=== PATIENT | male | born 1950 | race African-American/Black ===

== ENCOUNTER → 2017-08-20 | Emergency (ER) | payer OTHER ==
[~2017-08-20] MED LIST: KETOROLAC TROMETHAMINE 30 MG/1 ML VIAL IVPUSH ONE; KETOROLAC TROMETHAMINE 30 MG/1 ML VIAL ONE; SODIUM CHLORIDE 1,000 ML IV STA
--- NOTE | 2017-08-20 14:22 | PDOC ---
History of Present Illness - General Chief Complaint: Altered Mental Status Stated Complaint: ALTERED MENTAL/positive troponin Time Seen by Provider: 08/20/17 14:10 History Source: Patient - History of Present Illness Occurred: reports: other Pain Location: reports: back Past History - Past Medical History Allergies/Adverse Reactions: Allergies Allergy/AdvReac Type Severity Reaction Status Date / Time No Known Allergies Allergy Verified 08/20/17 14:28 Home Medications: Ambulatory Orders Lactose-Reduced Food [Ensure Plus] 237 ml PO TID #96 liquid 03/02/17 Abacavir Sulfate/Lamivudine [Epzicom Tablet] 1 tablet PO DAILY #30 tablet Amlodipine Besylate [Norvasc -] 5 mg PO DAILY #30 tablet 08/15/17 Darunavir Ethanolate [Prezista -] 800 mg PO DAILY #30 tablet 08/15/17 Gabapentin [Neurontin -] 100 mg PO Q8H #21 capsule 08/15/17 Multivit-Min/Iron Fum/Folic AC [Uxjak-Qswcxqb-Bjxnghmm Tablet] 1 each PO DAILY # 30 tablet 08/15/17 Ritonavir [Norvir -] 100 mg PO DAILY #30 tab 08/15/17 Anemia: Yes (Chronic - reports since childhood) Asthma: No Cancer: No Cardiac Disorders: No CVA: No COPD: No CHF: No Dementia: No Diabetes: No GI Disorders: No Disorders: No HTN: No Hypercholesterolemia: No Liver Disease: No Seizures: No Thyroid Disease: No - Surgical History Abdominal Surgery: No Appendectomy: No Cardiac Surgery: No Cholecystectomy: No Lung Surgery: No Neurologic Surgery: No Orthopedic Surgery: Yes (Mult Bone Fx - Trauma at age 40) - Suicide/Smoking/Psychosocial Hx Smoking History: Current every day smoker Have you smoked in the past 12 months: Yes Number of Cigarettes Smoked Daily: 4 Cigars Per Day: 0 Hx Alcohol Use: Yes Drug/Substance Use Hx: Yes Substance Use Type: Cocaine Hx Substance Use Treatment: Yes Review of Systems - Review of Systems Constitutional: No: Chills, Fever Respiratory: No: Cough, Shortness of Breath Cardiac (ROS): No: Chest Pain, Lightheadedness, Palpitations, Syncope Musculoskeletal: Yes: Back Pain Neurological: No: Numbness, Tingling, Weakness *Physical Exam - Physical Exam General Appearance: Yes: Appropriately Dressed. No: Apparent Distress HEENT: positive: Normal Voice Neck: positive: Supple Respiratory/Chest: positive: Lungs Clear, Normal Breath Sounds. negative: Respiratory Distress Cardiovascular: positive: Regular Rate, S1, S2 Gastrointestinal/Abdominal: positive: Soft. negative: Tender Musculoskeletal: negative: CVA Tenderness, Vertebral Tenderness Extremity: positive: Normal Inspection Integumentary: positive: Dry, Warm Neurologic: positive: Fully Oriented, Alert, Normal Mood/Affect ED Treatment Course - LABORATORY CBC & Chemistry Diagram: 08/20/17 15:00 08/20/17 15:00 - RADIOLOGY Radiology Studies Ordered: Category Date Time Status CHEST PA & LAT [RAD] Stat Radiology 08/20/17 14:17 Ordered SPINE-LUMBAR SACRAL [RAD] Stat Radiology 08/20/17 14:17 Ordered Medical Decision Making - Medical Decision Making 08/20/17 14:21 66-year-old male history of HIV well-controlled on meds, anemia, anxiety, depression, 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 for elevated CK-MB on labs 08/17. It is unclear why blood work was done, but CK-MB results was 66 w/ CK of >40K. No troponin was sent. EKG done at facility this am unremarkable. and no ekg done. Patient has no chest pain or shortness of breath and in fact only complaint is lower back pain radiating into his left buttocks that started several days ago. Patient states he tripped and fell onto buttocks and has had pain since. No lower extremity weakness, bowel or bladder incontinence or saddle anesthesia. Of note, as per chart review on 08/17, it is documented that patient complained of lower back discomfort after sleeping on a steel bed while incarcerated. X- ray was done which showed some DJD. Patient states he is not on anything for pain. See exam Acute on chronic LBP ?fall DJD on recent film No red flags at this time -pain control>reassess Elevated CK-MB (66) at rehab 2 days ago, no trop sent No CP or SOB EKF this am at facility was normal Pt stable w/ clear chest/lungs in ED -rpt labs -ekg 08/20/17 18:23 XR neg for fx. back pain improved w/ meds. CK >12K, will administer IVF for possible rhabdo as d/w Dr Alonso and rpt labs. Trop and ekg neg. Pt has no CP or SOB 08/20/17 18:39 08/20/17 18:55 08/20/17 18:55 Pt signed out NIRMAL Iqbal *DC/Admit/Observation/Transfer Diagnosis at time of Disposition: Elevated creatine kinase level, Back pain - Discharge Dispostion Disposition: HOME Condition at time of disposition: Stable - Referrals - Patient Instructions Printed Discharge Instructions: DI for Low Back Pain Additional Instructions: Please follow up with your primary care doctor this week. If you develop any new or worsening symptoms, please return to the ER. - Post Discharge Activity
[2017-08-20 15:18] LABS: BASO % 1.2 % (0-2.0); EOS % 0.6 % (0-4.5); HEMATOCRIT 31.5 % (35.4-49); HEMOGLOBIN 10.5 GM/dL (11.7-16.9); LYMPH % 28.5 % (8-40); MCH 30.6 pg (25.7-33.7); MCHC 33.1 g/dl (32.0-35.9); MEAN CELL VOLUME 92.3 fl (80-96); MEAN PLT VOLUME 8.6 fl (7.5-11.1); MONO % 6.8 % (3.8-10.2); NEUT % 62.9 % (42.8-82.8); PLATELET COUNT 202 K/MM3 (134-434); RBC 3.42 M/mm3 (4.00-5.60); RDW 14.9 % (11.9-15.9); WHITE BLOOD COUNT 5.4 K/mm3 (4.0-10.0)
[2017-08-20 15:48] LABS: CHLORIDE 105 mmol/L (98-107); POTASSIUM 4.8 mmol/L (3.5-5.1); SODIUM 139 mmol/L (136-145)
--- NOTE | 2017-08-20 16:10 | EKG ---
Test Reason : Blood Pressure : / mmHG Vent. Rate : 091 BPM Atrial Rate : 091 BPM P-R Int : 134 ms QRS Dur : 078 ms QT Int : 366 ms P-R-T Axes : 051 069 053 degrees QTc Int : 450 ms NORMAL SINUS RHYTHM NORMAL ECG WHEN COMPARED WITH ECG OF 04-JAN-2017 07:42, NO SIGNIFICANT CHANGE WAS FOUND Confirmed by EMMA LOPEZ MD ([id number]) on 08/20/2017 4:10:09 PM Referred By: GÉNESIS Confirmed By:EMMA LOPEZ MD
[2017-08-20 16:57] LABS: ALK PHOS 61 U/L (45-117); ANION GAP 5 (8-16); BILIRUBIN,TOTAL 0.4 mg/dL (0.2-1.0); BLOOD UREA NITROGEN 13 mg/dL (7-18); CALCIUM 8.1 mg/dL (8.5-10.1); CO2 29 mmol/L (21-32); CREATININE 0.8 mg/dL (0.7-1.3); GLUCOSE,RANDOM 77 mg/dL (74-106); SGPT/ALT 110 U/L (12-78); TOT PROT 6.8 g/dl (6.4-8.2)
[2017-08-20 17:43] LABS: SGOT/AST 439 U/L (15-37)
[2017-08-20 18:58] VITALS: BP 110/66; PULSE 80; TEMP 99.4
--- NOTE | 2017-08-20 20:03 | PDOC ---
*Physical Exam - Vital Signs Last Vital Signs Temp Pulse Resp BP Pulse Ox 99.4 F 80 19 110/66 95 08/20/17 18:58 08/20/17 18:58 08/20/17 18:58 08/20/17 18:58 08/20/17 18:58 - Physical Exam Comments: 08/20/17 20:03 Sign-out received from outgoing ER provider Jesse. Pt interviewed and examined. Ancillary studies reviewed. Will repeat CK s/p administration of 2L IVF. 08/20/17 22:08 Patient CK now 8000s, trending down appropriately. Patient states he feels ready to be discharged at this time, when asked how his pain is at this time patient states "I feel like I am ready to get the hell out of here." Patient is ambulatory in ED with no c/o of pain now. Will discharge to [facility]. Adivsed patient of signs and symptoms for return to ER; patient verbalized understanding and agrees to plan. 08/21/17 01:33 Upon discussion with RN accounts payable supervisor at [facility], patient was not admitted to [facility] and in fact is followed at the [facility] at [address] [place] [address] where he was sent in from today. Patient is to be sent home and followed at [facility]. ED Treatment Course - LABORATORY CBC & Chemistry Diagram: 08/20/17 15:00 08/20/17 15:00 - ADDITIONAL ORDERS Additional order review: Laboratory Results 08/20/17 08/20/17 15:00 15:00 Sodium 139 Potassium 4.8 Chloride 105 Carbon Dioxide 29 Anion Gap 5 L BUN 13 Creatinine 0.8 Creat Clearance w eGFR > 60 Random Glucose 77 Calcium 8.1 L Total Bilirubin 0.4 AST 439 H D ALT 110 H Alkaline Phosphatase 61 Creatine Kinase 00825 H Troponin I 0.03 B-Natriuretic Peptide 407.81 H Total Protein 6.8 Albumin 3.0 L 08/20/17 15:00 RBC 3.42 L MCV 92.3 MCHC 33.1 RDW 14.9 MPV 8.6 Neutrophils % 62.9 Lymphocytes % 28.5 Monocytes % 6.8 Eosinophils % 0.6 Basophils % 1.2 - Medications Given in the ED: ED Medications Discontinued Medications Generic Name Dose Route Start Last Admin Trade Name Freq PRN Reason Stop Dose Admin Sodium Chloride 1,000 mls @ 1,000 mls/hr 08/20/17 18:22 08/20/17 18:47 Normal Saline - IV 08/20/17 19:21 1,000 mls/hr ASDIR STA Administration Ketorolac Tromethamine 30 mg 08/20/17 14:28 08/20/17 15:37 Toradol Injection - IVPUSH 08/20/17 14:29 30 mg ONCE ONE Administration *DC/Admit/Observation/Transfer Diagnosis at time of Disposition: Elevated creatine kinase level Back pain Qualifiers: Back pain location: low back pain Chronicity: acute Back pain laterality: left Sciatica presence: with sciatica Sciatica laterality: sciatica of left side Qualified Code(s): M54.42 - Lumbago with sciatica, left side - Discharge Dispostion Disposition: HOME Condition at time of disposition: Stable Admit: No - Referrals - Patient Instructions Printed Discharge Instructions: DI for Low Back Pain Additional Instructions: Please follow up with your primary care doctor this week. If you develop any new or worsening symptoms, please return to the ER. - Post Discharge Activity
--- NOTE | 2017-08-23 11:40 | EKG ---
Test Reason : Blood Pressure : / mmHG Vent. Rate : 082 BPM Atrial Rate : 082 BPM P-R Int : 150 ms QRS Dur : 082 ms QT Int : 392 ms P-R-T Axes : 049 044 044 degrees QTc Int : 457 ms NORMAL SINUS RHYTHM MINIMAL VOLTAGE CRITERIA FOR LVH, MAY BE NORMAL VARIANT BORDERLINE ECG WHEN COMPARED WITH ECG OF 20-AUG-2017 13:02, NO SIGNIFICANT CHANGE WAS FOUND Confirmed by MITESH DAY MD ([id number]) on 08/23/2017 11:39:53 AM Referred By: Confirmed By:MITESH DAY MD
== END | disposition home or self-care (01) ==
LOC: JER 13:57
PROC: 3E0333Z Introduction of Anti-inflammatory into Peripheral Vein, Percutaneous Approach (ICD-10-PCS; principal; 2017-08-20)
PROC: 3E0337Z Introduction of Electrolytic and Water Balance Substance into Peripheral Vein, Percutaneous Approach (ICD-10-PCS; 2017-08-20)
DX: M54.42 Lumbago with sciatica, left side (principal); R94.4 Abnormal results of kidney function studies; Z21 Asymptomatic human immunodeficiency virus [HIV] infection status; D64.9 Anemia, unspecified; F17.210 Nicotine dependence, cigarettes, uncomplicated
CPT/HCPCS: 36415; 71020-TC; 72100-TC; 80053; 82550; 82553; 83880; 84484; 85025; 93005; 93010; 99283-25; G0463-25

== ENCOUNTER → 2019-05-12 | Outpatient (CLI) | payer OTHER | LOC: YHH 12:28 ==

== ENCOUNTER 2022-04-03 10:28 | Inpatient (IN) | payer OTHER ==
[2022-04-03] MEDS ORDERED: LABETALOL HCL 5 MG/1 ML (100MG/20 ML VIAL) IVPUSH ONE (12:07)
[2022-04-03] MEDS ORDERED: SIMETHICONE 80 MG TAB.CHEW (FP) PO ONE (13:26)
[2022-04-03] MEDS ORDERED: MAGNESIUM CITRATE 300 ML BOTTLE PO ONE (13:49)
[2022-04-03 14:11] LABS: BASO % 0.7 % (0-2.0); HEMOGLOBIN 14.5 GM/dL (11.7-16.9); LYMPH % 15.7 % (8-40); MCH 29.4 pg (25.7-33.7); MCHC 32.9 g/dl (32.0-35.9); MEAN CELL VOLUME 89.4 fl (80-96); MEAN PLT VOLUME 9.1 fl (7.5-11.1); NEUT % 79.6 % (42.8-82.8); PLATELET COUNT 219 10^3/uL (134-434); RBC 4.93 M/mm3 (4.00-5.60); RDW 15.4 % (11.9-15.9); WHITE BLOOD COUNT 9.8 K/mm3 (4.0-10.0)
[2022-04-03 14:30] LABS: EPI CELLS 1 /uL (0-25.1); HYALINE CASTS 0 /uL (0-3.1); PH,URINE 6.5 (5.0-8.0); URINE APPEARANCE CLEAR; URINE BACTERIA 8 /uL (0-1359); URINE BILIRUBIN NEGATIVE (NEGATIVE); URINE COLOR YELLOW; URINE GLUCOSE (UA) TRACE (NEGATIVE); URINE KETONE NEGATIVE (NEGATIVE); URINE LEUK ESTERASE NEGATIVE (NEGATIVE); URINE NITRITE NEGATIVE (NEGATIVE); URINE PROTEIN 1+ (NEGATIVE); URINE RBC 15 /uL (0-23.9); URINE WBC 1 /uL (0-25.8)
[2022-04-03] MEDS ORDERED: SIMETHICONE 80 MG TAB.CHEW (FP) ONE (14:36)
[2022-04-03] MEDS ORDERED: MAGNESIUM CITRATE 300 ML BOTTLE ONE (14:39)
[2022-04-03 15:01] LABS: ALBUMIN 3.5 g/dl (3.4-5.0); BLOOD UREA NITROGEN 18.8 mg/dL (7-18); CALCIUM 9.5 mg/dL (8.5-10.1)
[2022-04-03 15:08] LABS: BILIRUBIN,TOTAL 0.5 mg/dL (0.2-1)
[2022-04-03] MEDS ORDERED: Methylnaltrexone Bromide 12 MG/0.6 ML KIT SQ ONE (15:30)
[2022-04-03 15:55] LABS: LACTIC ACID 2.7 mmol/L (0.4-2.0)
[2022-04-03] MEDS ORDERED: SODIUM CHLORIDE 0.9% 500 ML INFUS.BAG IV ONE (17:47)
[2022-04-03] MEDS ORDERED: methaDONE HCL 10 MG TABLET (FOR DETOX USE ONLY) PO ONE (19:25)
[2022-04-03] MEDS ORDERED: methaDONE HCL 40 MG DISPERSABLE TABLET ONE (19:51)
[2022-04-03 21:08] LABS: LACTIC ACID 2.5 mmol/L (0.4-2.0)
[2022-04-03] MEDS ORDERED: POLYETHYLENE GLYCOL (HEALTHYLAX) 3350 17 GM PACKET ONE (22:44)
[2022-04-03] MEDS ORDERED: ATORVASTATIN CA 10 MG TABLET (FP) ONE (22:45)
[2022-04-03] MEDS ORDERED: LISINOPRIL 10 MG TABLET ONE (22:45)
[2022-04-03] MEDS: LISINOPRIL 20 MG TABLET PO SCH (22:51)
[2022-04-03] MEDS: INSULIN SLIDING SCALE (NOVOLOG) 1 VIAL SQ SCH (22:51)
[2022-04-03] MEDS: ATORVASTATIN CA 10 MG TABLET (FP) PO SCH (22:52)
[2022-04-03] MEDS: POLYETHYLENE GLYCOL (HEALTHYLAX) 3350 17 GM PACKET PO SCH (22:52)
[2022-04-04] MEDS: POLYETHYLENE GLYCOL (HEALTHYLAX) 3350 17 GM PACKET PO SCH ×3 (05:59→22:55)
[2022-04-04 08:08] LABS: BASO % 0.2 % (0-2.0); EOS % 0.1 % (0-4.5); HEMATOCRIT 32.5 % (35.4-49); HEMOGLOBIN 10.7 GM/dL (11.7-16.9); LYMPH % 33.7 % (8-40); MCH 29.2 pg (25.7-33.7); MCHC 32.9 g/dl (32.0-35.9); MEAN CELL VOLUME 88.7 fl (80-96); MEAN PLT VOLUME 8.8 fl (7.5-11.1); MONO % 9.8 % (3.8-10.2); NEUT % 56.2 % (42.8-82.8); PLATELET COUNT 196 10^3/uL (134-434); RBC 3.66 M/mm3 (4.00-5.60); RDW 15.3 % (11.9-15.9); WHITE BLOOD COUNT 7.2 K/mm3 (4.0-10.0)
[2022-04-04] MEDS: HYDROCHLOROTHIAZIDE 12.5 MG CAPSULE (FP) PO SCH (08:36)
[2022-04-04] MEDS: INSULIN SLIDING SCALE (NOVOLOG) 1 VIAL SQ SCH ×4 (08:36→22:54)
[2022-04-04] MEDS ORDERED: methaDONE HCL 40 MG DISPERSABLE TABLET PO ONE (08:56)
[2022-04-04] MEDS ORDERED: TAMSULOSIN HCL 0.4 MG CAP ONE (09:14)
[2022-04-04] MEDS ORDERED: methaDONE HCL 40 MG DISPERSABLE TABLET ONE (09:14)
[2022-04-04] MEDS: TAMSULOSIN HCL 0.4 MG CAP PO SCH (09:18)
[2022-04-04] MEDS: ENOXAPARIN NA (PORCINE) 40 MG/0.4 ML DISP.SYRIN SQ SCH (09:27)
[2022-04-04 09:32] LABS: CALCIUM 8.7 mg/dL (8.5-10.1)
[2022-04-04 09:33] LABS: BLOOD UREA NITROGEN 33.5 mg/dL (7-18); MAGNESIUM 2.8 mg/dL (1.8-2.4)
[2022-04-04 09:36] LABS: CREATININE 1.5 mg/dL (0.55-1.3); PHOSPHOROUS 3.5 mg/dL (2.5-4.9)
[2022-04-04 09:37] LABS: BILIRUBIN,TOTAL 0.6 mg/dL (0.2-1)
[2022-04-04 09:40] LABS: ALBUMIN 2.8 g/dl (3.4-5.0); TOT PROT 7.3 g/dl (6.4-8.2)
[2022-04-04] MEDS ORDERED: HYDROCHLOROTHIAZIDE 12.5 MG CAPSULE (FP) PO SCH (10:00)
[2022-04-04] MEDS ORDERED: Methylnaltrexone Bromide 12 MG/0.6 ML KIT SQ ONE (15:10)
[2022-04-04] MEDS: SODIUM CHLORIDE 1,000 ML IV SCH (16:06)
[2022-04-04 16:27] VITALS: BMI 21.6
[2022-04-04] MEDS: ATORVASTATIN CA 10 MG TABLET (FP) PO SCH (22:55)
[2022-04-04] MEDS: LISINOPRIL 20 MG TABLET PO SCH (22:55)
[2022-04-05] MEDS ORDERED: methaDONE HCL 40 MG DISPERSABLE TABLET PO SCH (06:00)
[2022-04-05] MEDS: HYDROCHLOROTHIAZIDE 12.5 MG CAPSULE (FP) PO SCH (06:45)
[2022-04-05] MEDS: INSULIN SLIDING SCALE (NOVOLOG) 1 VIAL SQ SCH ×3 (06:46→17:31)
[2022-04-05] MEDS: POLYETHYLENE GLYCOL (HEALTHYLAX) 3350 17 GM PACKET PO SCH ×2 (06:46→14:00)
[2022-04-05] MEDS: MINERAL OIL/PET HY-PHL TOPICAL OINTMENT 454 GM JAR TP SCH ×2 (08:49→10:25)
[2022-04-05] MEDS: TAMSULOSIN HCL 0.4 MG CAP PO SCH (08:59)
[2022-04-05 10:20] LABS: BASO % 0.4 % (0-2.0); EOS % 0.6 % (0-4.5); HEMATOCRIT 30.5 % (35.4-49); HEMOGLOBIN 10.2 GM/dL (11.7-16.9); LYMPH % 32.9 % (8-40); MCH 29.4 pg (25.7-33.7); MCHC 33.4 g/dl (32.0-35.9); MEAN PLT VOLUME 8.3 fl (7.5-11.1); MONO % 8.5 % (3.8-10.2); NEUT % 57.6 % (42.8-82.8); PLATELET COUNT 173 10^3/uL (134-434); RBC 3.47 M/mm3 (4.00-5.60); RDW 15.4 % (11.9-15.9); WHITE BLOOD COUNT 5.8 K/mm3 (4.0-10.0)
[2022-04-05] MEDS: ENOXAPARIN NA (PORCINE) 40 MG/0.4 ML DISP.SYRIN SQ SCH (10:25)
[2022-04-05 10:39] LABS: CALCIUM 8.3 mg/dL (8.5-10.1)
[2022-04-05 10:40] LABS: BLOOD UREA NITROGEN 26.8 mg/dL (7-18); MAGNESIUM 2.6 mg/dL (1.8-2.4)
[2022-04-05 10:43] LABS: PHOSPHOROUS 3.1 mg/dL (2.5-4.9)
[2022-04-05] MEDS: SODIUM CHLORIDE 1,000 ML IV SCH (13:59)
[2022-04-05 14:53] VITALS: BP 129/77; PULSE 61; TEMP 98.9
== END 2022-04-05 18:00 | disposition home or self-care (01) | DRG 389 ==
LOC: JER 10:28 → JERBED 19:03 → J8W 04-04 12:02
PROVIDERS: ADMIT Internal Medicine; ATTEND Nurse Practitioner Family
DX: K56.41 Fecal impaction (principal); F11.20 Opioid dependence, uncomplicated; B20 Human immunodeficiency virus [HIV] disease; E87.2 Acidosis; N13.30 Unspecified hydronephrosis; I24.8 Other forms of acute ischemic heart disease; R64 Cachexia; T40.2X5A Adverse effect of other opioids, initial encounter; I10 Essential (primary) hypertension; Z68.21 Body mass index [BMI] 21.0-21.9, adult; E11.9 Type 2 diabetes mellitus without complications
CPT/HCPCS: 36415; 71045-TC-FY; 74176-TC; 80048; 80053; 81003; 82962; 83036; 83605; 83690; 83735; 84100; 84153; 84484; 85025; 87086; 87536; 93005; 93010; 97116-GP; 97161-GP; 99285-25; C9803-CS; U0003; U0005

== ENCOUNTER 2023-06-01 10:56 | Inpatient (IN) | payer OTHER ==
[2023-06-01 11:09] VITALS: BMI 20.3
[2023-06-01 13:16] LABS: BASO % 0.5 % (0-2.0); EOS % 0.3 % (0-4.5); HEMATOCRIT 30.2 % (35.4-49); HEMOGLOBIN 9.7 GM/dL (11.7-16.9); LYMPH % 29.9 % (8-40); MCH 27.6 pg (25.7-33.7); MEAN CELL VOLUME 86.2 fl (80-96); MEAN PLT VOLUME 7.8 fl (7.5-11.1); MONO % 7.2 % (3.8-10.2); NEUT % 62.1 % (42.8-82.8); PLATELET COUNT 265 10^3/uL (134-434); RDW 16.6 % (11.9-15.9); WHITE BLOOD COUNT 6.3 K/mm3 (4.0-10.0)
[2023-06-01 13:19] LABS: VENOUS BASE EXCESS 3.6 mmol/L (-2-2); VENOUS O2 SATURATION 17.4 % (70-80); VENOUS PCO2 58.1 mmHg (38-52); VENOUS PH 7.337 (7.310-7.410)
[2023-06-01 13:46] LABS: POTASSIUM 4.3 mmol/L (3.5-5.1)
[2023-06-01 13:47] LABS: ALBUMIN 2.2 g/dl (3.4-5.0); BLOOD UREA NITROGEN 11.9 mg/dL (7-18)
[2023-06-01 13:51] LABS: CREATININE 0.8 mg/dL (0.55-1.3)
[2023-06-01 13:53] LABS: BILIRUBIN,TOTAL 0.3 mg/dL (0.2-1); TOT PROT 7.8 g/dl (6.4-8.2)
[2023-06-01] MEDS ORDERED: FLUCONAZOLE 100 MG TABLET (UD) PO ONE (14:17)
[2023-06-01] MEDS ORDERED: CEFTRIAXONE 1 GM in DEXTROSE 5%-WATER - 100 ML IVPB ONE (14:20)
[2023-06-01] MEDS ORDERED: AZITHROMYCIN IVPB 500 MG in DEXTROSE 5%-WATER - 250 ML IVPB ONE (14:20)
[2023-06-01] MEDS ORDERED: SULFAMETHOXAZOLE/TRIMETHOPRIM 800MG/160MG D.S. TABLET PO ONE (14:22)
[2023-06-01] MEDS ORDERED: FLUCONAZOLE 150 MG TABLET PO ONE (14:25)
[2023-06-01] MEDS ORDERED: SULFAMETHOXAZOLE/TRIMETHOPRIM 800MG/160MG D.S. TABLET ONE (14:25)
[2023-06-01] MEDS ORDERED: AZITHROMYCIN IVPB 500 MG/250 ML BAG IVPB ONE (14:26)
[2023-06-01] MEDS ORDERED: CEFTRIAXONE 1 GM/50 ML BAG ONE (14:26)
[2023-06-01] MEDS ORDERED: FLUCONAZOLE 100 MG TABLET (UD) ONE (14:27)
[2023-06-01] MEDS ORDERED: AZITHROMYCIN 250 MG TABLET PO ONE (14:52)
[2023-06-01] MEDS ORDERED: AZITHROMYCIN 500 MG TABLET ONE (14:56)
[2023-06-01] MEDS ORDERED: CEFPODOXIME PROXETIL 200 MG TABLET [NF] PO ONE (15:15)
[2023-06-01] MEDS ORDERED: CEFPODOXIME PROXETIL 100 MG TABLET PO ONE ×2 (15:30)
[2023-06-01] MEDS ORDERED: PATIENT'S OWN MEDICATION (NON-FORMULARY) (Lactose-Reduced Food [Ensure Liquid] 237 ML Liqu PO SCH (22:00)
[2023-06-01] MEDS: HEPARIN NA (PORCINE) 5,000 UNITS/ML 1ML VIAL SQ SCH (22:45)
[2023-06-01] MEDS: ATORVASTATIN CA 10 MG TABLET (FP) PO SCH (22:46)
[2023-06-01] MEDS: LISINOPRIL 20 MG TABLET PO SCH (22:46)
[2023-06-02] MEDS: HEPARIN NA (PORCINE) 5,000 UNITS/ML 1ML VIAL SQ SCH ×3 (05:28→22:38)
[2023-06-02 09:34] LABS: INR 1.07 (0.83-1.09); PROTHROMBIN TIME (PATIENT) 12.4 SEC (9.7-13.0)
[2023-06-02 09:48] LABS: HEMATOCRIT 29.4 % (35.4-49); HEMOGLOBIN 9.8 GM/dL (11.7-16.9); MCH 28.7 pg (25.7-33.7); MCHC 33.2 g/dl (32.0-35.9); MEAN CELL VOLUME 86.6 fl (80-96); MEAN PLT VOLUME 8.4 fl (7.5-11.1); PLATELET COUNT 254 10^3/uL (134-434); WHITE BLOOD COUNT 7.2 K/mm3 (4.0-10.0)
[2023-06-02 09:49] LABS: POTASSIUM 4.3 mmol/L (3.5-5.1)
[2023-06-02] MEDS ORDERED: methaDONE HCL 40 MG DISPERSABLE TABLET PO SCH (10:00)
[2023-06-02 10:07] LABS: BLOOD UREA NITROGEN 14.4 mg/dL (7-18); CALCIUM 8.1 mg/dL (8.5-10.1); TOT PROT 6.9 g/dl (6.4-8.2)
[2023-06-02 10:08] LABS: ALBUMIN 1.9 g/dl (3.4-5.0)
[2023-06-02 10:10] LABS: PHOSPHOROUS 3.2 mg/dL (2.5-4.9)
[2023-06-02 10:11] LABS: CREATININE 0.9 mg/dL (0.55-1.3)
[2023-06-02 10:14] LABS: BILIRUBIN,TOTAL 0.3 mg/dL (0.2-1)
[2023-06-02] MEDS: BICTEGRAV/EMTRICIT/TENOFOV (BIKTARVY) 50-200-25 MG TABLET PO SCH (10:16)
[2023-06-02] MEDS: CEFTRIAXONE 1 GM in DEXTROSE 5%-WATER - 50 ML IVPB SCH (10:16)
[2023-06-02] MEDS: HYDROCHLOROTHIAZIDE 25 MG TABLET (FP) PO SCH (10:16)
[2023-06-02] MEDS: ASPIRIN COATED 81 MG TABLET.EC PO SCH (10:16)
[2023-06-02] MEDS: PANTOPRAZOLE 40 MG TABLET PO SCH ×2 (10:16→10:21)
[2023-06-02] MEDS: TAMSULOSIN HCL 0.4 MG CAP PO SCH (10:16)
[2023-06-02] MEDS ORDERED: methaDONE HCL 10 MG TABLET PO ONE (13:09)
[2023-06-02] MEDS: LISINOPRIL 20 MG TABLET PO SCH (22:38)
[2023-06-02] MEDS: ATORVASTATIN CA 10 MG TABLET (FP) PO SCH (22:38)
[2023-06-02] MEDS: DOXYCYCLINE INJECTION 100 MG in DEXTROSE 5%-WATER 100 ML IVPB SCH (22:39)
[2023-06-03] MEDS: HEPARIN NA (PORCINE) 5,000 UNITS/ML 1ML VIAL SQ SCH ×3 (06:06→22:12)
[2023-06-03 06:48] VITALS: RESP 18
[2023-06-03] MEDS: PANTOPRAZOLE 40 MG TABLET PO SCH (09:18)
[2023-06-03] MEDS: TAMSULOSIN HCL 0.4 MG CAP PO SCH (09:18)
[2023-06-03] MEDS: HYDROCHLOROTHIAZIDE 25 MG TABLET (FP) PO SCH (09:18)
[2023-06-03] MEDS: ASPIRIN COATED 81 MG TABLET.EC PO SCH (09:18)
[2023-06-03] MEDS: BICTEGRAV/EMTRICIT/TENOFOV (BIKTARVY) 50-200-25 MG TABLET PO SCH (09:21)
[2023-06-03] MEDS: DOXYCYCLINE INJECTION 100 MG in DEXTROSE 5%-WATER 100 ML IVPB SCH (09:26)
[2023-06-03] MEDS: CEFTRIAXONE 1 GM in DEXTROSE 5%-WATER - 50 ML IVPB SCH (11:32)
[2023-06-03] MEDS: ATORVASTATIN CA 10 MG TABLET (FP) PO SCH (22:12)
[2023-06-03] MEDS: LISINOPRIL 20 MG TABLET PO SCH (22:12)
[2023-06-04] MEDS: HEPARIN NA (PORCINE) 5,000 UNITS/ML 1ML VIAL SQ SCH ×4 (05:23→23:06)
[2023-06-04] MEDS: BICTEGRAV/EMTRICIT/TENOFOV (BIKTARVY) 50-200-25 MG TABLET PO SCH (08:23)
[2023-06-04] MEDS: TAMSULOSIN HCL 0.4 MG CAP PO SCH (08:23)
[2023-06-04] MEDS: PANTOPRAZOLE 40 MG TABLET PO SCH (09:27)
[2023-06-04] MEDS: HYDROCHLOROTHIAZIDE 25 MG TABLET (FP) PO SCH (09:28)
[2023-06-04] MEDS: ASPIRIN COATED 81 MG TABLET.EC PO SCH (09:28)
[2023-06-04] MEDS: CEFTRIAXONE 1 GM in DEXTROSE 5%-WATER - 50 ML IVPB SCH (09:28)
[2023-06-04] MEDS ORDERED: SULFAMETHOXAZOLE/TRIMETHOPRIM 800MG/160MG D.S. TABLET PO SCH (10:00)
[2023-06-04] MEDS: ATORVASTATIN CA 10 MG TABLET (FP) PO SCH (23:07)
[2023-06-04] MEDS: LISINOPRIL 20 MG TABLET PO SCH (23:10)
[2023-06-05] MEDS: HEPARIN NA (PORCINE) 5,000 UNITS/ML 1ML VIAL SQ SCH ×2 (06:58→14:55)
[2023-06-05] MEDS: HYDROCHLOROTHIAZIDE 25 MG TABLET (FP) PO SCH (09:07)
[2023-06-05] MEDS: BICTEGRAV/EMTRICIT/TENOFOV (BIKTARVY) 50-200-25 MG TABLET PO SCH (09:07)
[2023-06-05] MEDS: TAMSULOSIN HCL 0.4 MG CAP PO SCH (09:07)
[2023-06-05] MEDS: PANTOPRAZOLE 40 MG TABLET PO SCH (09:07)
[2023-06-05] MEDS: ASPIRIN COATED 81 MG TABLET.EC PO SCH (09:07)
[2023-06-05] MEDS: CEFTRIAXONE 1 GM in DEXTROSE 5%-WATER - 50 ML IVPB SCH ×2 (09:08→09:37)
[2023-06-05] MEDS: AMOX TR/POT CLAV 500MG/125MG TABLETS (FP) PO SCH ×2 (11:05→17:17)
[2023-06-05 15:31] VITALS: BP 114/75; PULSE 87; TEMP 98.4
== END 2023-06-05 17:50 | disposition home health service (06) | DRG 975 ==
LOC: JER 10:56 → JERBED 14:26 → OBSVTOIN 17:17 → J8W 20:57
PROVIDERS: ADMIT Family Medicine; ATTEND Family Medicine
DX: J18.9 Pneumonia, unspecified organism (principal); B20 Human immunodeficiency virus [HIV] disease; F11.20 Opioid dependence, uncomplicated; J44.0 Chronic obstructive pulmonary disease with (acute) lower respiratory infection; B37.0 Candidal stomatitis; I10 Essential (primary) hypertension; E78.5 Hyperlipidemia, unspecified; E11.9 Type 2 diabetes mellitus without complications; R09.02 Hypoxemia; N40.0 Benign prostatic hyperplasia without lower urinary tract symptoms
CPT/HCPCS: 0241U-QW; 36415; 71045-TC-FY; 80053; 82803; 83615; 83735; 84100; 84443; 84484; 85025; 85610; 86359; 86360; 87040; 87899; 93005; 93010; 94761; 99285-25; G0378; J1644

== ENCOUNTER 2023-07-17 12:51 | Inpatient (IN) | payer OTHER ==
[2023-07-17 13:21] VITALS: BMI 19.2
[2023-07-17 14:58] LABS: BASO % 0.6 % (0-2.0); EOS % 0.4 % (0-4.5); HEMATOCRIT 34.9 % (35.4-49); HEMOGLOBIN 11.5 GM/dL (11.7-16.9); LYMPH % 36.6 % (8-40); MEAN CELL VOLUME 88.1 fl (80-96); MEAN PLT VOLUME 7.9 fl (7.5-11.1); MONO % 10.3 % (3.8-10.2); NEUT % 52.1 % (42.8-82.8); PLATELET COUNT 215 10^3/uL (134-434); RBC 3.96 M/mm3 (4.00-5.60); RDW 18.5 % (11.9-15.9); WHITE BLOOD COUNT 6.9 K/mm3 (4.0-10.0)
[2023-07-17 15:27] LABS: POTASSIUM 3.6 mmol/L (3.5-5.1)
[2023-07-17 15:29] LABS: BLOOD UREA NITROGEN 23.8 mg/dL (7-18)
[2023-07-17 15:30] LABS: ALBUMIN 2.8 g/dl (3.4-5.0)
[2023-07-17 15:35] LABS: BILIRUBIN,TOTAL 0.2 mg/dL (0.2-1); TOT PROT 8.4 g/dl (6.4-8.2)
[2023-07-17] MEDS ORDERED: PIPERACILLIN/TAZOB 4.5 GM 4.5 GM in DEXTROSE 5%-WATER 100 ML IVPB ONE (17:03)
[2023-07-17] MEDS: VANCOMYCIN 1 GM PREMIX - 1 GM/200 ML BAG IVPB ONE ×3 (17:40→19:33)
[2023-07-17] MEDS ORDERED: PIPERACILLIN/TAZOB 4.5 GM 4.5 GM/100 ML BAG IVPB ONE (19:12)
[2023-07-17] MEDS ORDERED: VANCOMYCIN 1 GRAM (PRE-DOCKED) 1,000 MG/250 ML BAG IVPB ONE (19:12)
[2023-07-18] MEDS ORDERED: methaDONE HCL 10 MG TABLET PO ONE (06:00)
[2023-07-18] MEDS: PANTOPRAZOLE 40 MG TABLET PO SCH (06:49)
[2023-07-18] MEDS: SODIUM CHLORIDE 1,000 ML IV SCH ×2 (06:50→22:30)
[2023-07-18 08:20] LABS: PH,URINE 5.5 (5.0-8.0); URINE APPEARANCE Clear; URINE BILIRUBIN Negative (NEGATIVE); URINE COLOR Yellow; URINE GLUCOSE (UA) Negative (NEGATIVE); URINE KETONE Trace (NEGATIVE); URINE LEUK ESTERASE Negative (NEGATIVE); URINE NITRITE Negative (NEGATIVE); URINE PROTEIN 2+ (NEGATIVE); URINE UROBILINOGEN 0.2 mg/dL (0.2-1.0)
[2023-07-18 08:37] LABS: EPI CELLS 4 /uL (0-25.1); HYALINE CASTS 0 /uL (0-3.1); URINE BACTERIA 1 /uL (0-1359); URINE RBC 4 /uL (0-23.9); URINE WBC 2 /uL (0-25.8)
[2023-07-18] MEDS: ENOXAPARIN NA (PORCINE) 40 MG/0.4 ML DISP.SYRIN SQ SCH (09:38)
[2023-07-18] MEDS: BICTEGRAV/EMTRICIT/TENOFOV (BIKTARVY) 50-200-25 MG TABLET PO SCH (09:38)
[2023-07-18] MEDS: NICOTINE 14 MG/24 HOURS TOPICAL PATCH TD SCH (09:38)
[2023-07-18] MEDS: TAMSULOSIN HCL 0.4 MG CAP PO SCH (09:39)
[2023-07-18] MEDS: ASPIRIN COATED 81 MG TABLET.EC PO SCH (09:39)
[2023-07-18] MEDS: HYDROCHLOROTHIAZIDE 25 MG TABLET (FP) PO SCH (09:39)
[2023-07-18] MEDS: MULTIVITAMINS (DAILY MVI) TABLET (FP) PO SCH (09:39)
[2023-07-18] MEDS: SULFAMETHOXAZOLE/TRIMETHOPRIM 800MG/160MG D.S. TABLET PO SCH (09:39)
[2023-07-18 10:19] LABS: BASO % 0.4 % (0-2.0); EOS % 0.6 % (0-4.5); HEMATOCRIT 33.1 % (35.4-49); HEMOGLOBIN 11.1 GM/dL (11.7-16.9); LYMPH % 41.5 % (8-40); MCH 29.5 pg (25.7-33.7); MCHC 33.6 g/dl (32.0-35.9); MEAN CELL VOLUME 87.7 fl (80-96); MEAN PLT VOLUME 8.2 fl (7.5-11.1); MONO % 14.5 % (3.8-10.2); PLATELET COUNT 199 10^3/uL (134-434); RBC 3.77 M/mm3 (4.00-5.60); RDW 17.9 % (11.9-15.9); WHITE BLOOD COUNT 6.3 K/mm3 (4.0-10.0)
[2023-07-18 10:56] LABS: POTASSIUM 3.9 mmol/L (3.5-5.1)
[2023-07-18 11:01] LABS: BLOOD UREA NITROGEN 25.4 mg/dL (7-18)
[2023-07-18 11:04] LABS: ALBUMIN 2.6 g/dl (3.4-5.0); MAGNESIUM 2.2 mg/dL (1.8-2.4)
[2023-07-18 11:06] LABS: CREATININE 0.9 mg/dL (0.55-1.3); PHOSPHOROUS 2.9 mg/dL (2.5-4.9)
[2023-07-18 11:07] LABS: TOT PROT 7.9 g/dl (6.4-8.2)
[2023-07-18 11:08] LABS: BILIRUBIN,TOTAL 0.2 mg/dL (0.2-1)
[2023-07-18 14:10] LABS: HIV INTERPRETATION PRESUMPTIVE POSITIVE (NEGATIVE)
[2023-07-18] MEDS: ATORVASTATIN CA 10 MG TABLET (FP) PO SCH (21:09)
[2023-07-18] MEDS: LISINOPRIL 20 MG TABLET PO SCH (21:09)
[2023-07-18] MEDS: DOXYCYCLINE INJECTION 100 MG in DEXTROSE 5%-WATER 100 ML IVPB SCH (23:43)
[2023-07-19] MEDS: PIPERACILLIN/TAZOB 4.5 GM 4.5 GM in DEXTROSE 5%-WATER 100 ML IVPB SCH ×4 (03:31→20:02)
[2023-07-19] MEDS: PANTOPRAZOLE 40 MG TABLET PO SCH (06:04)
[2023-07-19 08:48] LABS: HEMATOCRIT 32.2 % (35.4-49); HEMOGLOBIN 10.9 GM/dL (11.7-16.9); MCH 29.8 pg (25.7-33.7); MCHC 33.7 g/dl (32.0-35.9); MEAN CELL VOLUME 88.3 fl (80-96); PLATELET COUNT 197 10^3/uL (134-434); RBC 3.65 M/mm3 (4.00-5.60); RDW 17.8 % (11.9-15.9); WHITE BLOOD COUNT 6.6 K/mm3 (4.0-10.0)
[2023-07-19 08:49] LABS: POTASSIUM 4.1 mmol/L (3.5-5.1)
[2023-07-19 08:51] LABS: BLOOD UREA NITROGEN 23.1 mg/dL (7-18); CALCIUM 8.7 mg/dL (8.5-10.1)
[2023-07-19 08:54] LABS: CREATININE 0.9 mg/dL (0.55-1.3)
[2023-07-19] MEDS: DOXYCYCLINE INJECTION 100 MG in DEXTROSE 5%-WATER 100 ML IVPB SCH ×2 (09:31→21:37)
[2023-07-19] MEDS: ASPIRIN COATED 81 MG TABLET.EC PO SCH (09:32)
[2023-07-19] MEDS: MULTIVITAMINS (DAILY MVI) TABLET (FP) PO SCH (09:32)
[2023-07-19] MEDS: BICTEGRAV/EMTRICIT/TENOFOV (BIKTARVY) 50-200-25 MG TABLET PO SCH (09:32)
[2023-07-19] MEDS: TAMSULOSIN HCL 0.4 MG CAP PO SCH (09:33)
[2023-07-19] MEDS: HYDROCHLOROTHIAZIDE 25 MG TABLET (FP) PO SCH (09:33)
[2023-07-19] MEDS: ENOXAPARIN NA (PORCINE) 40 MG/0.4 ML DISP.SYRIN SQ SCH (09:34)
[2023-07-19] MEDS: NICOTINE 14 MG/24 HOURS TOPICAL PATCH TD SCH (09:34)
[2023-07-19 09:51] LABS: ANISOCYTOSIS 1+; MACROCYTOSIS 0
[2023-07-19] MEDS: CEFTRIAXONE 2 GM in DEXTROSE 5%-WATER 100 ML IVPB SCH (16:14)
[2023-07-19] MEDS: ATORVASTATIN CA 10 MG TABLET (FP) PO SCH (21:36)
[2023-07-19] MEDS: LISINOPRIL 20 MG TABLET PO SCH (21:36)
[2023-07-19 22:16] VITALS: PULSE 105
[2023-07-20] MEDS: PANTOPRAZOLE 40 MG TABLET PO SCH (06:37)
[2023-07-20] MEDS: CEFTRIAXONE 2 GM in DEXTROSE 5%-WATER 100 ML IVPB SCH ×2 (10:39→10:52)
[2023-07-20] MEDS: HYDROCHLOROTHIAZIDE 25 MG TABLET (FP) PO SCH (10:40)
[2023-07-20] MEDS: ASPIRIN COATED 81 MG TABLET.EC PO SCH (10:40)
[2023-07-20] MEDS: MULTIVITAMINS (DAILY MVI) TABLET (FP) PO SCH (10:40)
[2023-07-20] MEDS: TAMSULOSIN HCL 0.4 MG CAP PO SCH (10:40)
[2023-07-20] MEDS: SULFAMETHOXAZOLE/TRIMETHOPRIM 800MG/160MG D.S. TABLET PO SCH (10:40)
[2023-07-20] MEDS: BICTEGRAV/EMTRICIT/TENOFOV (BIKTARVY) 50-200-25 MG TABLET PO SCH (10:44)
[2023-07-20] MEDS: DOXYCYCLINE INJECTION 100 MG in DEXTROSE 5%-WATER 100 ML IVPB SCH (10:51)
[2023-07-20] MEDS: NICOTINE 14 MG/24 HOURS TOPICAL PATCH TD SCH (10:51)
[2023-07-20] MEDS: ENOXAPARIN NA (PORCINE) 40 MG/0.4 ML DISP.SYRIN SQ SCH (10:52)
[2023-07-20 15:43] VITALS: BP 112/55; RESP 20; TEMP 98.3
== END 2023-07-20 19:26 | disposition home health service (06) | DRG 974 ==
LOC: JER 12:51 → JERBED 17:07 → J8W 23:32
PROVIDERS: ADMIT Internal Medicine; ATTEND Family Medicine
DX: J18.9 Pneumonia, unspecified organism (principal); E43 Unspecified severe protein-calorie malnutrition; B20 Human immunodeficiency virus [HIV] disease; F11.20 Opioid dependence, uncomplicated; Z68.1 Body mass index [BMI] 19.9 or less, adult; R64 Cachexia; J98.11 Atelectasis; R78.81 Bacteremia; F03.90 Unspecified dementia, unspecified severity, without behavioral disturbance, psychotic disturbance, mood disturbance, and anxiety; R53.1 Weakness; N40.0 Benign prostatic hyperplasia without lower urinary tract symptoms; I10 Essential (primary) hypertension; E78.00 Pure hypercholesterolemia, unspecified; R62.7 Adult failure to thrive; F19.10 Other psychoactive substance abuse, uncomplicated; F17.200 Nicotine dependence, unspecified, uncomplicated; B18.2 Chronic viral hepatitis C; J44.9 Chronic obstructive pulmonary disease, unspecified; D64.9 Anemia, unspecified
CPT/HCPCS: 0241U-QW; 36415; 71045-TC-FY; 71250-TC; 80048; 80053; 81003; 82607; 82746; 83615; 83735; 84100; 85025; 85651; 86140; 86359; 86360; 87040; 87086; 87389; 87522; 87536; 97116-GP; 97162-GP; 99285-25